=== PATIENT | male | born 1970 | race African-American/Black ===

== ENCOUNTER 2016-10-29 19:02 | Emergency (ER) | payer OTHER ==
[~2016-10-29] VITALS: Ht 175.3 cm; Wt 90.7 kg
[2016-10-29] MEDS ORDERED: NAPROSYN500 MG PO (20:28)
[2016-10-29 20:30] VITALS: BP 155/88
== END 2016-10-29 22:12 | disposition home or self-care (01) ==
LOC: ER 19:02
DX: G44.209 Tension-type headache, unspecified, not intractable (principal)